=== PATIENT | male | born 1940 | race Caucasian/White ===

== ENCOUNTER 2024-12-08 19:37 | Observation (INO) | payer OTHER ==
[~2024-12-08] VITALS: Ht 167.6 cm; Wt 81.7 kg
[~2024-12-08 19:37] MED LIST: ASPI325 PO; ASPI81EC PO; CHLO25B PO; Crestor40 MG PO; INSDET100 SQ; INSLI100I SC; INSULANPEN SC; LISI20 PO; NEBI5 PO; VERA240ERA PO
[2024-12-08 21:08] LABS: Source, Urine Voided
[2024-12-08 21:12] LABS: Bilirubin, Urine Neg (Neg); Glucose Qualitative, Urine 4+ (Neg); Ketones, Urine 3+ (Neg); Leukocyte Esterase, Urine Neg (Neg); Protein, Urine 2+ (Neg); Specific Gravity, Urine 1.015 (1.003-1.022); Urobilinogen, Urine NORM (Normal)
[2024-12-08 21:18] LABS: Color, Urine Pale Yellow (P-Yellow)
[2024-12-08 21:19] LABS: White Blood Cells, Urine 0-2 /hpf (0-5)
[2024-12-08 21:47] LABS: Influenza A, PCR NEGATIVE (NEGATIVE); Influenza B, PCR NEGATIVE (NEGATIVE); Resp Syncytial Virus, PCR NEGATIVE (NEGATIVE); SARS-Cov-2 (COVID-19) PCR, MMC NEGATIVE (NEGATIVE)
[2024-12-08 22:01] LABS: BASOPHILS ABSOLUTE AUTO 0.03 K/mm3 (0.00-0.23); BASOPHILS PERCENT AUTO 0 % (0-2); EOSINOPHILS ABSOLUTE AUTO 0.00 K/mm3 (0.00-0.68); EOSINOPHILS PERCENT AUTO 0 % (0-6); Hematocrit 42.6 % (37.0-53.0); Hemoglobin 14.4 g/dL (13.5-17.5); IMMATURE GRAN ABSOLUTE AUTO 0.07 K/mm3 (0.00-0.10); IMMATURE GRAN PERCENT AUTO 1 % (0-1); LYMPHOCYTES ABSOLUTE AUTO 0.52 K/mm3 (0.84-5.20); LYMPHOCYTES PERCENT AUTO 4 % (21-46); MONOCYTES ABSOLUTE AUTO 0.51 K/mm3 (0.16-1.47); MONOCYTES PERCENT AUTO 4 % (4-13); Mean Corpuscular HGB Conc 33.8 g/dL (31.5-36.5); Mean Corpuscular Volume 90 fL (80-100); NEUTROPHILS ABSOLUTE AUTO 12.22 K/mm3 (1.96-9.15); NEUTROPHILS PERCENT AUTO 92 % (41-73); NRBC ABSOLUTE 0.00 K/mm3 (0.00-0.02); NRBC Auto 0.0 /100 WBC (0.0-0.2); Platelet Count 232 K/mm3 (150-400); RDW Coefficient Variation 13.6 % (11.7-14.2); RDW Standard Deviation 45.0 fL (35.1-46.3)
[2024-12-08 22:16] LABS: Alanine Aminotransfer (ALT/SGP 19.0 U/L (12-78); Albumin, Blood 3.8 g/dL (3.4-5.0); Albumin/Globulin Ratio 1.1 (0.8-1.8); Anion Gap 13.0 mmol/L (3-11); Aspartate Aminotrans (AST/SGOT 16.0 U/L (12-37); Bilirubin, Total 1.2 mg/dL (0.1-1.0); Blood Urea Nitrogen 32.0 mg/dL (8-24); CO2, Blood 20.0 mmol/L (21-32); Calcium, Blood 9.4 mg/dL (8.5-10.1); Chloride, Blood 104.0 mmol/L (98-108); Creatinine, Blood 1.59 mg/dL (0.60-1.20); Globulin, Blood 3.5 g/dL (2.2-4.0); Glucose, Blood 607.0 mg/dL (70-99); Potassium, Blood 4.3 mmol/L (3.5-5.5); Sodium, Blood 133.0 mmol/L (136-145); Total Protein, Blood 7.3 g/dL (6.4-8.2)
[2024-12-08] MEDS ORDERED: NS 1,000 ML IV SCH (22:30)
[2024-12-08 22:45] VITALS: BP 182/68
[2024-12-08 22:50] LABS: pH Blood Venous 7.36 (7.34-7.37)
[2024-12-08 23:00] VITALS: BP 109/50
[2024-12-08 23:23] VITALS: BP 201/67
[2024-12-09] VITALS: BP 182/82
[2024-12-09] MEDS ORDERED: HydrALAZINE HCl 20 MG / ML 1ML Vial IV PRN (00:35)
[2024-12-09 00:49] LABS: Magnesium, Blood 1.6 mg/dL (1.6-2.4); Phosphorus, Blood 2.7 mg/dL (2.5-4.9)
[2024-12-09] MEDS ORDERED: Enoxaparin 40 MG/0.4 ML SYR SC SCH (01:00)
[2024-12-09] MEDS ORDERED: Insulin Glargine-Yfgn 100 Unit/mL 3 ML SYR SC ONE (01:00)
[2024-12-09] MEDS ORDERED: Insulin Glargine 100 Unit/ML 3 ML SYR SC ONE (01:25)
[2024-12-09 01:47] VITALS: BP 151/54
--- NOTE | 2024-12-09 03:35 | NUR ---
Admit note for 12/09/2024 01:41/ Shift summary- Recieved report from break nurse. Patient was brought down in wheelchair to 334. Patient was oriented to room and staff. Full assessment was done. Patient alert and oriented x4 with confusing. Patient was diagnosed with broncitis. Lung sounds diminished and moist. Remains on LR at 75. Remains on blood sugars q4 hours. 20units of lantus given for blood sugar of 461. Vital signs are stable on RA, sating at 98%. Remains on purewik. Patient confused and tried to get out of bed with purwik attached. Purwik became detached from patient and wall. New purewick but on and patient is reoriented to leave purewik and IV alone. Patient verbalized wanting to be a DNR code status. Call to HCP for order of DNR. DNR ordered and bracelet in place. Remains on zithromax once a day. Patient in bed at this with call light in place.
[2024-12-09 03:40] LABS: BASOPHILS ABSOLUTE AUTO 0.02 K/mm3 (0.00-0.23); BASOPHILS PERCENT AUTO 0 % (0-2); EOSINOPHILS ABSOLUTE AUTO 0.03 K/mm3 (0.00-0.68); EOSINOPHILS PERCENT AUTO 0 % (0-6); Hematocrit 39.8 % (37.0-53.0); Hemoglobin 13.3 g/dL (13.5-17.5); IMMATURE GRAN ABSOLUTE AUTO 0.03 K/mm3 (0.00-0.10); IMMATURE GRAN PERCENT AUTO 0 % (0-1); LYMPHOCYTES ABSOLUTE AUTO 0.94 K/mm3 (0.84-5.20); LYMPHOCYTES PERCENT AUTO 8 % (21-46); MONOCYTES ABSOLUTE AUTO 0.74 K/mm3 (0.16-1.47); MONOCYTES PERCENT AUTO 6 % (4-13); Mean Corpuscular HGB Conc 33.4 g/dL (31.5-36.5); Mean Corpuscular Volume 91 fL (80-100); NEUTROPHILS ABSOLUTE AUTO 10.12 K/mm3 (1.96-9.15); NEUTROPHILS PERCENT AUTO 85 % (41-73); NRBC ABSOLUTE 0.00 K/mm3 (0.00-0.02); NRBC Auto 0.0 /100 WBC (0.0-0.2); Platelet Count 199 K/mm3 (150-400); RDW Coefficient Variation 13.6 % (11.7-14.2); RDW Standard Deviation 45.7 fL (35.1-46.3)
[2024-12-09 04:30] LABS: Alanine Aminotransfer (ALT/SGP 17.0 U/L (12-78); Albumin, Blood 3.4 g/dL (3.4-5.0); Albumin/Globulin Ratio 1.1 (0.8-1.8); Anion Gap 10.0 mmol/L (3-11); Aspartate Aminotrans (AST/SGOT 23.0 U/L (12-37); Bilirubin, Total 0.9 mg/dL (0.1-1.0); Blood Urea Nitrogen 31.0 mg/dL (8-24); CO2, Blood 23.0 mmol/L (21-32); Calcium, Blood 8.7 mg/dL (8.5-10.1); Chloride, Blood 106.0 mmol/L (98-108); Creatinine, Blood 1.57 mg/dL (0.60-1.20); Globulin, Blood 3.1 g/dL (2.2-4.0); Glucose, Blood 435.0 mg/dL (70-99); Potassium, Blood 4.1 mmol/L (3.5-5.5); Sodium, Blood 135.0 mmol/L (136-145); Total Protein, Blood 6.5 g/dL (6.4-8.2)
[2024-12-09 05:29] VITALS: BP 126/58
[2024-12-09] MEDS ORDERED: Insulin Human Lispro 100 Units/ML 3ML Syringe SC SCH ×3 (06:00→16:30)
[2024-12-09 07:58] VITALS: BP 121/43
[2024-12-09] MEDS ORDERED: Insulin Glargine 100 Unit/ML 3 ML SYR SC SCH ×2 (09:00→21:00)
[2024-12-09] MEDS ORDERED: INSULIN AS100 UNIT/7 SC (11:21)
[2024-12-09] MEDS ORDERED: ROSUVASTATIN CA20 MG PO (11:21)
[2024-12-09 15:13] VITALS: BP 128/85
--- NOTE | 2024-12-09 16:19 | NUR ---
PT DC'D LACIV OF OWN ACCORD. THIS RN NOTICED, PERFORMED INTERVENTION, AND DID NOT/HAVE NOT ATTEMPTED TO INSERT ANOTHER IV IN FEAR OF PT DC IV AGAIN. WILL NOTIFY CHIEF MEDIA OFFICER.
--- NOTE | 2024-12-09 18:00 | NUR ---
SHIFT SUMMARY PT AOX3/4, COOEPRATIVE, ABLE TO MAKE NEEDS KNOWN. PT IS 1 PERSON ASSIST. PT DID HAVE URGENCY ISSUE IN WHICH CULINARY ARTIST BATHED PT. IV WAS PULLED, NEW IV PLACED. PT DC'D IV AT APPROX 1600, WITH THIS RN PERFORMED INTERVENTIONS TO STOP BLEEDING, NO IV ACCESS ORDERED. PT NONREDIRECTABLE AT TIMES, BUT IS COMPLIANT WHEN TO BEDSIDE. BED ALARM, CHAIR ALARM ACTIVE. BED IN LOWEST POSITION, CALL LIGHT WITHIN REACH.
[2024-12-09 20:21] VITALS: BP 128/57
--- NOTE | 2024-12-10 04:29 | NUR ---
SHIFT SUMMARY- SHIFT EVENTS- IMPULSIVE, WILL NOT USE CALL LIGHT. FALL RISK; BED ALARM. DX- JLTIS HX- DM, HTN, HLD VS- 97.8 TEMP, 128/57 BP, 70 HR, 16 RR, SP02- 97% CODE STATUS- DNR; BRACELET ON. NEURO- A&OX4 BUT IS CONFUSED OFTEN. PLEASANT, COOPERATIVE WITH CARE. IMPULSIVE AND DOES NOT USE IS CALL LIGHT. PAIN- PAIN IS NOT REPORTED DURING THIS SHIFT. SKIN- SMALL AREA OF BRUISING ON RIGHT ARM. MUSCULOSKELETAL- BED/CHAIR REST; FALL RISK. CARDIAC- HTN HISTORY, BP BEEN SOFT DAY SHIFT 12/09/24; BP 158/57 DURING SHIFT. MAURISIO REFUSED/CONTRAINDATIVE DUE TO PATIENT GETTING OUT OF BED WITHOUT ASSISTANCE. GASTRO- CONTINENT. NO WITNESSED BM DURING SHIFT. CONSISTENT CARB DIET. RESPIRATORY- LUNG SOUNDS DIMINISHED/MOIST ON RA. INCREASED DYSPNEA WITH EXERTION. WET SOUND NON PRODUCTIVE COUGH. NEW ORDER FOR TESSALON.THAT WAS REFUSED THIS SHIFT. GENITOURARY- INCONTIENT AT BASELINE BUT HAS BEEN MAKING IT TO THE BATHROOM. HE WILL GET OUT OF BED WITHOUT ASSISTANCE; FALL RISK. BED ALARM ON.. BLOOD SUGAR CHECK- AC/HS HS- 216. COVERAGE WITH LANTUS. SAFETY- BEDREST; FALL RISK. BED ALARM. IV SITES- NO IV; ORDER IN PLACE. MEDICATION ADMINISTRATION- WHOLE WITH FLUID PATIENT IS RESTING WITH EYES CLOSED. BED IN LOWEST POSITION, CALL LIGHT WITHIN REACH.
[2024-12-10 04:56] VITALS: BP 132/61
[2024-12-10 05:26] LABS: BASOPHILS ABSOLUTE AUTO 0.02 K/mm3 (0.00-0.23); BASOPHILS PERCENT AUTO 0 % (0-2); EOSINOPHILS ABSOLUTE AUTO 0.45 K/mm3 (0.00-0.68); EOSINOPHILS PERCENT AUTO 5 % (0-6); Hematocrit 38.5 % (37.0-53.0); Hemoglobin 13.0 g/dL (13.5-17.5); IMMATURE GRAN ABSOLUTE AUTO 0.02 K/mm3 (0.00-0.10); IMMATURE GRAN PERCENT AUTO 0 % (0-1); LYMPHOCYTES ABSOLUTE AUTO 1.39 K/mm3 (0.84-5.20); LYMPHOCYTES PERCENT AUTO 16 % (21-46); MONOCYTES ABSOLUTE AUTO 0.78 K/mm3 (0.16-1.47); MONOCYTES PERCENT AUTO 9 % (4-13); Mean Corpuscular HGB Conc 33.8 g/dL (31.5-36.5); Mean Corpuscular Volume 91 fL (80-100); NEUTROPHILS ABSOLUTE AUTO 6.09 K/mm3 (1.96-9.15); NEUTROPHILS PERCENT AUTO 70 % (41-73); NRBC ABSOLUTE 0.00 K/mm3 (0.00-0.02); NRBC Auto 0.0 /100 WBC (0.0-0.2); Platelet Count 196 K/mm3 (150-400); RDW Coefficient Variation 13.5 % (11.7-14.2); RDW Standard Deviation 45.2 fL (35.1-46.3)
[2024-12-10 06:10] LABS: Anion Gap 7.0 mmol/L (3-11); Blood Urea Nitrogen 27.0 mg/dL (8-24); CO2, Blood 25.0 mmol/L (21-32); Calcium, Blood 8.9 mg/dL (8.5-10.1); Chloride, Blood 108.0 mmol/L (98-108); Creatinine, Blood 1.43 mg/dL (0.60-1.20); Glucose, Blood 61.0 mg/dL (70-99); Potassium, Blood 3.5 mmol/L (3.5-5.5); Sodium, Blood 136.0 mmol/L (136-145)
[2024-12-10 07:11] VITALS: BP 145/82
--- NOTE | 2024-12-10 07:40 | NUR ---
REVIEWING CHART AND NOTICED THAT MEDICATIONS ON PATIENT'S EMAR DID NOT MATCH WHAT WAS DISCUSSED IN TREATMENT PLAN IN MOST RECENT PROGRESS NOTE. CALL MADE TO DR. MALIK AND DISCUSSED. AWAITING NEW ORDERS.
[2024-12-10] MEDS ORDERED: AZIT500 PO (13:24)
--- NOTE | 2024-12-10 14:16 | NUR ---
DISCHARGE NOTE: WENT OVER DISCHARGE WITH PATIENT AND HIS . PATIENT GOT HIMSELF DRESSED AND COLLECETED BELONGINGS. PATIENT WAS WHEELED DOWN BY RN. NO SIGNS OR SYMPTOMS OF DISTRESS WITH DISCHARGE.
[2024-12-10] MEDS ORDERED: Insulin Glargine 100 Unit/ML 3 ML SYR SC SCH (21:00)
== END 2024-12-10 14:15 | disposition home or self-care (01) ==
LOC: ER 19:37 → MEDS 20:37
PROVIDERS: Emergency Medicine; Family Medicine; Student in an Organized Health Care Education/Training Program; ADMIT Internal Medicine
DX: E10.65 Type 1 diabetes mellitus with hyperglycemia (principal); J06.9 Acute upper respiratory infection, unspecified; I10 Essential (primary) hypertension; I65.29 Occlusion and stenosis of unspecified carotid artery; J20.9 Acute bronchitis, unspecified; Z87.891 Personal history of nicotine dependence; Z66 Do not resuscitate; Z79.82 Long term (current) use of aspirin; Z79.4 Long term (current) use of insulin; Z79.899 Other long term (current) drug therapy
CPT/HCPCS: 36415; 71046; 80048; 80053; 81001; 82010; 82803; 82947; 83036; 83690; 83735; 84100; 85025; 87081; 87430; 87637; 93005; 93010; 96372; 99285-25; A9270; G0378; J1650; J1815; J7030; J7120

== ENCOUNTER → 2024-12-14 | Outpatient (CLI) | payer OTHER ==
[~2024-12-14] MED LIST changes: +AZIT500 PO; +INSULIN AS100 UNIT/7 SC; +ROSUVASTATIN CA20 MG PO
[2024-12-14 10:03] LABS: Source, Urine Clean Catch
[2024-12-14 10:44] LABS: Bilirubin, Urine Neg (Neg); Glucose Qualitative, Urine 4+ (Neg); Ketones, Urine 1+ (Neg); Leukocyte Esterase, Urine Neg (Neg); Protein, Urine 2+ (Neg); Specific Gravity, Urine 1.010 (1.003-1.022); Urobilinogen, Urine NORM (Normal)
[2024-12-14 10:50] LABS: Color, Urine Yellow (P-Yellow)
[2024-12-14 11:02] LABS: Red Blood Cells, Urine 0-2 /hpf (0-2); White Blood Cells, Urine 0-2 /hpf (0-5)
== END | disposition home or self-care (01) ==
LOC: LAB SHORT 10:01 → LAB 10:01
PROVIDERS: Internal Medicine
DX: R30.0 Dysuria (principal)
CPT/HCPCS: 81001